=== PATIENT | male | born 1935 | race Caucasian/White ===

== ENCOUNTER → 2019-10-03 | Outpatient (CLI) | payer OTHER ==
[2016-06-20 12:23] VITALS: BP 152/74
[~2019-10-03] MED LIST: AMIO200T4 PO; ATORVASTATIN CA80 MG PO; FURO20TA3 PO; METO100T5 PO; RIVA10TA PO; TAMS0.4C2 PO
--- NOTE | 2019-10-03 13:21 | KCIC ---
EXAM: Renal sonogram. HISTORY: Nocturia. TECHNIQUE: Sonographic imaging of the kidneys and bladder was performed. COMPARISON: None. FINDINGS: The kidneys are normal in size. There are left greater than right renal cysts. The largest cyst is seen within the left mid zone measuring 1.6 cm. There is a suspected complex cyst with or milk of calcium or wall calcification within the lower pole the left kidney measuring 9 mm. There is no hydronephrosis. The prevoid bladder volume is 98 cc. The post void bladder volume is 63 cc. IMPRESSION: 1. Small left greater than right renal cysts, one of which within the lower pole the left kidney may be complex with milk of calcium or wall calcification. This measures 9 mm. 2. Post void bladder residual of 63 cc. Electronically signed by: Guillermina Dailey MD (10/03/2019 1:17 PM) [id number]
== END | disposition home or self-care (01) ==
LOC: KCIC US 12:04
PROVIDERS: ATTEND Internal Medicine
DX: N28.1 Cyst of kidney, acquired (principal); N40.1 Benign prostatic hyperplasia with lower urinary tract symptoms
CPT/HCPCS: 76770